=== PATIENT | male | born 1945 | race Caucasian/White ===

== ENCOUNTER → 2018-01-13 | Outpatient (CLI) | payer MEDICARE ==
[~2018-01-13] MED LIST: ASPI1TAB57 PO; ATOR20TA15 PO; CENTCHW4 CHEW; DICY10CA12 PO; FISH100020 PO; HYDR-3516 PO; LACTTAB5 PO; LISI20TA PO; MELO15TA20 PO; RABE1TAB PO; TRAM50TA PO
== END ==
LOC: CPRE 11:25
PROVIDERS: ATTEND Neurological Surgery
DX: M50.10 Cervical disc disorder with radiculopathy, unspecified cervical region (principal); M48.062 Spinal stenosis, lumbar region with neurogenic claudication; M50.30 Other cervical disc degeneration, unspecified cervical region

== ENCOUNTER 2018-06-16 06:07 | Inpatient (IN) ==
[2018-06-16] MEDS ORDERED: Metoprolol Tartrate 25 MG Tablet PO ONE (06:29)
[2018-06-16] MEDS ORDERED: Chlorhexidine Gluconate 2% 1 Pack (2 Cloths) TOPICAL ONE (06:29)
[2018-06-16] MEDS ORDERED: ceFAZolin 2 GM IV; once IV.SIG PRN (06:36)
[2018-06-16] MEDS ORDERED: Bupivacaine/Epinephrine 0.5% Inj 50 ML Vial ONE (06:46)
[2018-06-16] MEDS ORDERED: Gelatin Size 100 Topical Foam ONE (06:47)
[2018-06-16] MEDS: Sod Chloride 0.9% Inj 1,000 ML IV.SIG SCH (06:53)
[2018-06-16] MEDS ORDERED: Sodium Chlor 0.9% Inj 500 ML IV.SIG SCH (07:00)
[2018-06-16] MEDS ORDERED: Propofol Inj 500 MG/50 ML Vial ONE ×2 (07:41→11:55)
[2018-06-16] MEDS ORDERED: DEXTROSE IV.CONT ONE (08:31)
[2018-06-16] MEDS ORDERED: Lidocaine PF 1% Inj 5 ML Syringe OTHER ONE (08:31)
[2018-06-16] MEDS ORDERED: Phenylephrine/NS 1000 MCG/10ML Syringe IV.PUSH ONE (08:31)
[2018-06-16] MEDS ORDERED: Neostigmine Inj 5 MG/5 ML Syringe IV.PUSH ONE (08:31)
[2018-06-16] MEDS ORDERED: [UNRECOGNIZED DRUG - OTHER] IV.CONT ONE (08:31)
[2018-06-16] MEDS ORDERED: Glycopyrrolate Inj 1 MG/5 ML Syringe IV.PUSH ONE (08:31)
[2018-06-16] MEDS ORDERED: fentaNYL Citrate Inj 100 MCG/2 ML Ampul ONE ×2 (11:55→13:06)
[2018-06-16] MEDS ORDERED: Aluminum/Magnesium/Simethacone Susp 30 ML UDC PO PRN (12:55)
[2018-06-16] MEDS ORDERED: Acetaminophen 325 MG Tablet PO PRN (12:55)
[2018-06-16] MEDS ORDERED: Magnesium Sulfate Inj 2 GM in Sodium Chlor 0.9% Inj 96 ML IV.SIG PRN (12:55)
[2018-06-16] MEDS ORDERED: Menthol 5.8 MG Lozenge BUCCAL PRN (12:55)
[2018-06-16] MEDS ORDERED: Potassium Chlor 20 mEq Premix 20 MEQ/100 ML PIGGYBACK IV.SIG PRN (12:55)
[2018-06-16] MEDS ORDERED: Bisacodyl 10 MG Supp RECTAL PRN (12:55)
[2018-06-16] MEDS ORDERED: Calcium Gluconate Inj 1 GM in Sodium Chlor 0.9% Inj 100 ML IV.SIG PRN (12:55)
[2018-06-16] MEDS ORDERED: *morphine SULFATE 4 MG/ML PERIprocedure ONLY ONE ×3 (12:57→13:15)
--- NOTE | 2018-06-16 13:08 | P.OP ---
- Preoperative Diagnosis (1) Cervical spondylosis with myelopathy and radiculopathy (2) Degenerative cervical spinal stenosis (3) Spondylolisthesis, cervical region (4) Other secondary kyphosis, cervical region Date of procedure: 06/16/18 Procedure: Posterior C3, C4, C5, C6, C7 and T1 fusion; C3, C4, C5, C6, C7 and T1 decompressive laminectomies; C3-T1 posterior segmental fixation; microsurgical technique Anesthesia: GETA Surgeon: Saran Newsome MD Member Certification Manager: Candy Loaiza Estimated blood loss (mL): 150 Operation and Findings: Following administration of general endotracheal anesthesia with the neck maintained in neutral position in a [place] collar, patient had a Bateman catheter placed with sequential compression devices. A gram of Ancef was administered intravenously. He was then turned on a prone position on a Andrew table and the head secured in a horseshoe headrest and all pressure points adequately padded. Posterior cervical region was then shaved and prepped with Betadine solution and ChloraPrep. Sterile draping undertaken along with Ioban and a midline incision extending from the C3 to the T1 was then made after infiltrating the skin was 0.5% Marcaine with epinephrine solution. Intraoperative fluoroscopy used for level confirmation. Retractors were used for exposure after the fascia incised and the muscular attachments to the spinous process and lamina along with the facets detached from C3 to T1 levels bilaterally. Further dissection was undertaken using microtechnique with microscope magnification. I drilled out the lamina at the junction of the facets from C3 to C7 levels bilaterally and an en bloc laminectomy undertaken for decompression the spinal canal. The inferior portion of the C3 lamina and the superior portion of the T1 lamina along the spinous process and the ligamentum flavum were also resected with Kerrisons. The facets on both sides decorticated with a curette. Subsequently lateral mass fixation undertaken with the [employer] screws with entry point of the midportion of the facet bilaterally from the C3-T1 levels. The screw trajectory was lateral and superiorly guided at the lateral masses in the cervical spine and at the T1 levels there were injected laterally towards the transverse processes with fluoroscopy also. Screws were then connected with a malik and locked in place with caps. The construct appeared to be secure at this point in AP and lateral fluoroscopy confirmed good placement and alignment. The decorticated facets were then packed from C3 to T1 levels with the local autograft morselized bone for posterolateral fusion. The area was then copiously irrigated with antibody solution laminectomy edges and hemostasis achieved with bone wax along with Gelfoam and thrombin. Retractors removed and the muscle and fascia using 2-0 Vicryl interrupted sutures and 3-0 Vicryl subcuticular stitch also placed in an interrupted fashion and final skin closure was with fransisco. A sterile dressing was applied and the neck immobilized in a [place] collar. He was then turned in supine position and extubated and taken to recovery room. There were no intraoperative complications and all sponge and needle count was correct at the end the procedure. Estimated blood loss about 150 cc. Patient did undergo intraoperative neurologic monitoring which remained stable throughout surgery.
[2018-06-16] MEDS ORDERED: HYDROmorphone PF Inj 2 MG/ML Vial ONE ×4 (13:24→14:52)
[2018-06-16 13:43] LABS: Baso % (Auto) 0.2 % (0.0-2.0); Eos % (Auto) 0.4 % (0.0-4.0); Hemoglobin 10.6 gm/dL (13.0-17.0); Lymph # (Auto) 0.7 th/mm3 (1.0-4.8); Lymph % (Auto) 7.2 % (9.0-44.0); Mean Corpuscular HGB Conc 35.3 % (32.0-36.0); Mean Corpuscular Hemoglobin 34.5 pg (27.0-34.0); Mean Corpuscular Volume 97.7 fL (80.0-100.0); Mean Platelet Volume 8.6 fL (7.0-11.0); Mono # (Auto) 0.2 th/mm3 (0.0-0.9); Mono % (Auto) 1.7 % (0.0-8.0); Neut # (Auto) 8.3 th/mm3 (1.8-7.7); Neut % (Auto) 90.5 % (16.0-70.0); Platelet Count 160 th/mm3 (150-450); Red Blood Count 3.07 mil/mm3 (4.50-5.90); Red Cell Distribution Width 13.3 % (11.6-17.2); White Blood Count 9.2 th/mm3 (4.0-11.0)
--- NOTE | 2018-06-16 13:54 | XR ---
EXAM DATE: 06/16/2018 12:00 AM EDT AGE/SEX: 73 years / Male INDICATIONS: Post-op C3-C4, C4-C5, C5-C6, C6-C7, C7-T1 posterior cervical fusion. CLINICAL DATA: This is the patient's initial encounter. Patient reports that signs and symptoms have been present for 1 day and indicates a pain score of Nonresponsive. MEDICAL/SURGICAL HISTORY: Non-responsive. Non-responsive. COMPARISON: No prior exams available for comparison. CONCLUSION: Fluoroscopic images during posterior fusion C3 inferiorly what appears to be T1 level Electronically signed by: Dannie Arenas MD 06/16/2018 1:53 PM EDT
[2018-06-16 14:05] LABS: Calcium 8.6 mg/dL (8.5-10.1); Carbon Dioxide 19.5 meq/L (21.0-32.0); Magnesium 1.5 mg/dL (1.5-2.5); Potassium 4.2 meq/L (3.5-5.1)
[2018-06-16] MEDS: Dicyclomine 10 MG Capsule PO SCH ×2 (18:23→21:32)
[2018-06-16] MEDS: Morphine Inj 4 MG/ML Vial IV.PUSH PRN ×2 (18:23→23:13)
[2018-06-16] MEDS: Senna/Docusate Sodium 8.6/50 MG Tablet PO SCH (21:35)
[2018-06-16] MEDS: Zolpidem Tartrate 5 MG Tablet PO PRN (23:13)
[2018-06-17] MEDS: Morphine Inj 4 MG/ML Vial IV.PUSH PRN ×6 (02:33→20:07)
[2018-06-17] MEDS: Lisinopril 20 MG Tablet PO SCH (08:11)
[2018-06-17] MEDS: Senna/Docusate Sodium 8.6/50 MG Tablet PO SCH ×2 (08:11→20:07)
[2018-06-17] MEDS: Dicyclomine 10 MG Capsule PO SCH ×3 (09:15→18:09)
[2018-06-17] MEDS: Sod Chloride 0.9% Inj 1,000 ML IV.SIG SCH (09:26)
--- NOTE | 2018-06-17 15:26 | P.PNNS ---
Subjective Interval history: Pt complains of neck pain but states it is improving this morning. He denies any radiculopathy and states it radiates into the shoulders. He states movement exacerbates his pain. He is oob sitting up in chair. <Dannie Talamantes - Last Filed: 06/17/18 15:18> Physical Exam Vital signs: Vital Signs 06/16/18 16:00 06/16/18 20:00 06/17/18 00:00 Temperature 97.8 F 97.6 F 98.9 F Pulse Rate 84 98 H 96 H Respiratory Rate 14 20 20 Blood Pressure 133/77 151/62 H 122/65 Pulse Oximetry 94 L 97 94 L 06/17/18 04:00 06/17/18 08:00 06/17/18 12:00 Temperature 98.1 F 97.6 F 98.3 F Pulse Rate 90 91 H 108 H Respiratory Rate 20 23 22 Blood Pressure 120/60 124/59 L 127/72 Pulse Oximetry 99 98 99 Intake & Output 06/16/18 06/17/18 06/17/18 18:59 06:59 18:59 Intake Total 2745 / 2745 1915 / 1915 1100 / 1100 Output Total 825 / 825 2200 / 2200 100 / 100 Balance 1920 / 1920 -285 / -285 1000 / 1000 Weight 69.8 kg Intake: IV 395 / 395 955 / 955 1100 / 1100 NS + KCl 20 mEq Inj 1,000 ML @ 145 / 145 855 / 855 1000 / 1000 100 mls/hr IV.CONT .Q10H [facility] Rx #:[id number] Magnesium Sulfate Inj 2 GM In 100 / 100 NS Inj 96 ML @ 100 mls/hr IV. SIG UNSCH PRN Rx#:[id number] Ancef 2 GM Premix Inj 2 gm In 50 / 50 50 ml @ 100 mls/hr IV.SIG SPEECH AND LANGUAGE SPECIALIST PRN Rx#:[id number] Ancef Inj 1,000 MG In NS Inj 100 / 100 100 / 100 100 / 100 100 ML @ 200 mls/hr IV.SIG Q8H [place] Rx#:[id number] Oral 50 / 50 960 / 960 Anesthesia Amount 2300 / 2300 Output: Urine 2200 / 2200 100 / 100 Estimated Blood Loss 150 / 150 Urine Amount (Catheter) 675 / 675 Indwelling Urethral Catheter 675 / 675 - Constitutional mild distress (Related to pain.), average body habitus, cooperative - Routine HEENT Exam Head: Present: normocephalic, atraumatic Eye: Present: PERRL. Absent: conjunctival icterus ENT: Absent: oropharynx clear - Routine Neck Exam Absent: full ROM (Pt in a [place] J cervical collar.) - Routine Respiratory Exam Present: CTA bilaterally. Absent: respiratory distress, rhonchi, wheezes - Routine Cardiovascular Exam Present: RRR, S1, S2. Absent: murmur - Routine Abdominal Exam Present: soft, normoactive bowel sounds. Absent: distended - Routine Skin Exam Absent: cyanosis, erythema Comments: Incision clean and dry. Kati in place. No signs of infection or complication. - Routine Neurological Exam Present: alert, motor deficit (Pt has mild give away deltoid weakness but has a history of shoulder problems with the left had been replaced and the right needing replacement.), moving all extremities. Absent: altered mental status - Routine Psychiatric Exam Present: normal affect, cooperative. Absent: anxious - Urinary Catheter Management Indwelling Urethral Catheter Cath placed during this visit: yes, but has since been removed by the nurse Reason for continuing: Continue criteria not met Insertion date: 06/16/18 Removal date: 06/17/18 Removal time: 05:45 <Dannie Talamantes - Last Filed: 06/17/18 15:18> Vital signs: Vital Signs 06/16/18 20:00 06/17/18 00:00 06/17/18 04:00 Temperature 97.6 F 98.9 F 98.1 F Pulse Rate 98 H 96 H 90 Respiratory Rate 20 20 20 Blood Pressure 151/62 H 122/65 120/60 Pulse Oximetry 97 94 L 99 06/17/18 08:00 06/17/18 12:00 06/17/18 16:00 Temperature 97.6 F 98.3 F 99.3 F Pulse Rate 91 H 108 H 92 H Respiratory Rate 23 22 23 Blood Pressure 124/59 L 127/72 136/72 Pulse Oximetry 98 99 98 Intake & Output 06/16/18 06/17/18 06/17/18 18:59 06:59 18:59 Intake Total 2745 / 2745 1915 / 1915 1100 / 1100 Output Total 825 / 825 2200 / 2200 100 / 100 Balance 1920 / 1920 -285 / -285 1000 / 1000 Weight 69.8 kg Intake: IV 395 / 395 955 / 955 1100 / 1100 NS + KCl 20 mEq Inj 1,000 ML @ 145 / 145 855 / 855 1000 / 1000 100 mls/hr IV.CONT .Q10H [facility] Rx #:[id number] Magnesium Sulfate Inj 2 GM In 100 / 100 NS Inj 96 ML @ 100 mls/hr IV. SIG UNSCH PRN Rx#:[id number] Ancef 2 GM Premix Inj 2 gm In 50 / 50 50 ml @ 100 mls/hr IV.SIG SPEECH AND LANGUAGE SPECIALIST PRN Rx#:[id number] Ancef Inj 1,000 MG In NS Inj 100 / 100 100 / 100 100 / 100 100 ML @ 200 mls/hr IV.SIG Q8H [facility] Rx#:[id number] Oral 50 / 50 960 / 960 Anesthesia Amount 2300 / 2300 Output: Urine 2200 / 2200 100 / 100 Estimated Blood Loss 150 / 150 Urine Amount (Catheter) 675 / 675 Indwelling Urethral Catheter 675 / 675 - Urinary Catheter Management Indwelling Urethral Catheter Cath placed during this visit: no <Saran Newsome - Last Filed: 06/17/18 16:36> Assessment and Plan - Assessment (1) Cervical spondylosis with myelopathy and radiculopathy Code(s): M47.12 - Other spondylosis with myelopathy, cervical region; M47.22 - Other spondylosis with radiculopathy, cervical region Status: Acute (2) Degenerative cervical spinal stenosis Code(s): M48.02 - Spinal stenosis, cervical region Status: Acute (3) Spondylolisthesis, cervical region Code(s): M43.12 - Spondylolisthesis, cervical region Status: Acute (4) Other secondary kyphosis, cervical region Code(s): M40.12 - Other secondary kyphosis, cervical region Status: Acute - Plan A: 73 y/o M s/p Posterior C3, C4, C5, C6, C7 and T1 fusion; C3, C4, C5, C6, C7 and T1 decompressive laminectomies; C3-T1 posterior segmental fixation; microsurgical technique by Dr. Newsome on 06/16/18. P: Continue with pain control. Pt got oral pain medication and had injection of morphine this morning. Continue with cervical collar. PT Consult increase ambulation. <Dannie Talamantes - Last Filed: 06/17/18 15:18> - Attending Attestation The exam, history, and the medical decision-making described in the above note were completed with the assistance of the mid-level provider. I reviewed and agree with the findings presented. I attest that I had a [id number] encounter with the patient on the same day, and personally performed and documented my assessment and findings in the medical record. <Saran Newsome - Last Filed: 06/17/18 16:36>
[2018-06-17] MEDS: Zolpidem Tartrate 5 MG Tablet PO PRN (23:30)
[2018-06-18] MEDS: Morphine Inj 4 MG/ML Vial IV.PUSH PRN ×2 (04:14→11:47)
[2018-06-18] MEDS: Dicyclomine 10 MG Capsule PO SCH ×3 (09:01→17:45)
[2018-06-18] MEDS: Lisinopril 20 MG Tablet PO SCH (09:01)
[2018-06-18] MEDS: Senna/Docusate Sodium 8.6/50 MG Tablet PO SCH ×2 (09:01→21:07)
--- NOTE | 2018-06-18 13:37 | P.PNNS ---
Subjective Interval history: Pt awake and alert. Complains of neck pain. No radiculopathy in UEs. He states when the catheter was removed he had urgency and frequency but was unable to void. The catheter was replaced. He denies any history of previous BPH. <Dannie Talamantes - Last Filed: 06/18/18 13:18> Physical Exam Vital signs: Vital Signs 06/17/18 16:00 06/17/18 20:00 06/18/18 00:00 Temperature 99.3 F 99.9 F H 99.3 F Pulse Rate 92 H 102 H 93 H Respiratory Rate 23 22 20 Blood Pressure 136/72 140/73 123/66 Pulse Oximetry 98 95 95 06/18/18 04:00 06/18/18 08:00 06/18/18 12:00 Temperature 99.7 F H 100.6 F H 99.5 F Pulse Rate 83 94 H 95 H Respiratory Rate 20 20 18 Blood Pressure 111/67 139/75 123/73 Pulse Oximetry 94 L 97 95 Intake & Output 06/17/18 06/18/18 06/18/18 18:59 06:59 18:59 Intake Total 1100 / 1100 Output Total 100 / 100 2950 / 2950 Balance 1000 / 1000 -2950 / -2950 Weight 73.9 kg Intake: IV 1100 / 1100 NS + KCl 20 mEq Inj 1,000 ML @ 1000 / 1000 100 mls/hr IV.CONT .Q10H [facility] Rx #:[id number] Ancef Inj 1,000 MG In NS Inj 100 / 100 100 ML @ 200 mls/hr IV.SIG Q8H [facility] Rx#:[id number] Output: Urine 100 / 100 900 / 900 Urine Amount (Catheter) 2049 Indwelling Urethral Catheter 2049 - Constitutional no acute distress - Routine HEENT Exam Head: Present: normocephalic, atraumatic Eye: Present: PERRL. Absent: conjunctival icterus - Routine Neck Exam Absent: full ROM ([place] J collar in place.) - Routine Respiratory Exam Present: CTA bilaterally. Absent: respiratory distress, rhonchi, wheezes - Routine Cardiovascular Exam Present: RRR, S1, S2. Absent: murmur - Routine Abdominal Exam Present: soft, normoactive bowel sounds. Absent: tenderness, distended - Routine Skin Exam Absent: cyanosis, erythema - Routine Neurological Exam Present: alert, oriented X3, moving all extremities, normal speech. Absent: sensory deficit, motor deficit - Routine Psychiatric Exam Present: normal affect, cooperative. Absent: anxious, agitated - Urinary Catheter Management Indwelling Urethral Catheter Cath placed during this visit: yes, but has since been removed by the nurse Reason for continuing: Acute urinary retention Insertion date: 06/17/18 Insertion time: 20:44 Removal date: 06/17/18 Removal time: 05:45 <Dannie Talamantes - Last Filed: 06/18/18 13:18> Vital signs: Vital Signs 06/17/18 20:00 06/18/18 00:00 06/18/18 04:00 Temperature 99.9 F H 99.3 F 99.7 F H Pulse Rate 102 H 93 H 83 Respiratory Rate 22 20 20 Blood Pressure 140/73 123/66 111/67 Pulse Oximetry 95 95 94 L 06/18/18 08:00 06/18/18 12:00 Temperature 100.6 F H 99.5 F Pulse Rate 94 H 95 H Respiratory Rate 20 18 Blood Pressure 139/75 123/73 Pulse Oximetry 97 95 Intake & Output 06/17/18 06/18/18 06/18/18 18:59 06:59 18:59 Intake Total 1100 / 1100 Output Total 100 / 100 2950 / 2950 Balance 1000 / 1000 -2950 / -2950 Weight 73.9 kg Intake: IV 1100 / 1100 NS + KCl 20 mEq Inj 1,000 ML @ 1000 / 1000 100 mls/hr IV.CONT .Q10H [facility] Rx #:[id number] Ancef Inj 1,000 MG In NS Inj 100 / 100 100 ML @ 200 mls/hr IV.SIG Q8H [facility] Rx#:[id number] Output: Urine 100 / 100 900 / 900 Urine Amount (Catheter) 2049 Indwelling Urethral Catheter 2049 - Urinary Catheter Management Indwelling Urethral Catheter Cath placed during this visit: no <Saran Newsome - Last Filed: 06/18/18 16:56> Assessment and Plan - Assessment (1) Cervical spondylosis with myelopathy and radiculopathy Code(s): M47.12 - Other spondylosis with myelopathy, cervical region; M47.22 - Other spondylosis with radiculopathy, cervical region Status: Acute (2) Degenerative cervical spinal stenosis Code(s): M48.02 - Spinal stenosis, cervical region Status: Acute (3) Spondylolisthesis, cervical region Code(s): M43.12 - Spondylolisthesis, cervical region Status: Acute (4) Other secondary kyphosis, cervical region Code(s): M40.12 - Other secondary kyphosis, cervical region Status: Acute - Plan A: 73 y/o M s/p Posterior C3, C4, C5, C6, C7 and T1 fusion; C3, C4, C5, C6, C7 and T1 decompressive laminectomies; C3-T1 posterior segmental fixation; microsurgical technique by Dr. Newsome on 06/16/18. P: Continue with pain control. Pt got oral pain medication and had injection of morphine this morning, we discussed trying to stop the Morphine. Continue with cervical collar. Continue with PT Possibly discharge tomorrow am. <Dannie Talamantes - Last Filed: 06/18/18 13:18> - Attending Attestation The exam, history, and the medical decision-making described in the above note were completed with the assistance of the mid-level provider. I reviewed and agree with the findings presented. I attest that I had a [id number] encounter with the patient on the same day, and personally performed and documented my assessment and findings in the medical record. Incisional pain well controlled and ambulating. Bateman catheter placed for urinary retention and will leave it until tomorrow morning. If subsequently is able to void in the a.m. then anticipate discharge tomorrow with home health care. <Saran Newsome - Last Filed: 06/18/18 16:56>
--- NOTE | 2018-06-18 14:57 | P.DCO ---
- Diagnosis (1) Cervical spondylosis with myelopathy and radiculopathy Status: Acute (2) Degenerative cervical spinal stenosis Status: Acute (3) Spondylolisthesis, cervical region Status: Acute (4) Other secondary kyphosis, cervical region Status: Acute - Physical Therapy Order: Evaluate and treat, Improve ambulation, Strength and gait training - Home Health Nursing Order: Wound care and dressing changes, Nursing assessment with vital signs - Certification I have seen patient Aroldo Quiñonez on 06/18/18. My clinical findings support the need for the requested home health care services because: Deconditioned with increased weakness, High risk of falls I certify that my clinical findings support that this patient is homebound because: Post-op weakness, Unsteady gait/balance, Unable to use public transportation
[2018-06-18 18:26] LABS: Bacteria,Urine Rare /hpf; Bilirubin,Urine Negative (Negative); Clarity,Urine Clear (Clear); Color,Urine Straw (Yellw/Straw); Glucose,Urine (UA) Negative (Negative); Hyaline Casts,Urine 1 /lpf (0-3); Leukocyte Esterase,Urine Moderate (Negative); Mucus,Urine Few /lpf (Occasional); Nitrite,Urine Negative (Negative); Specific Gravity,Urine 1.009 (1.002-1.035)
[2018-06-19] MEDS: Zolpidem Tartrate 5 MG Tablet PO PRN (01:46)
[2018-06-19] MEDS: Senna/Docusate Sodium 8.6/50 MG Tablet PO SCH (08:12)
[2018-06-19] MEDS: Lisinopril 20 MG Tablet PO SCH (08:13)
[2018-06-19] MEDS: Dicyclomine 10 MG Capsule PO SCH ×2 (08:13→12:50)
--- NOTE | 2018-06-19 10:41 | P.PNNS ---
Subjective Interval history: patient reports pain controlled. ramirez dc'ed this am. +voiding Physical Exam Vital signs: Vital Signs 06/18/18 12:00 06/18/18 16:00 06/18/18 20:00 Temperature 99.5 F 99 F 99.4 F Pulse Rate 95 H 97 H 100 H Respiratory Rate 18 20 18 Blood Pressure 123/73 104/66 122/57 L Pulse Oximetry 95 100 95 06/19/18 00:00 06/19/18 04:00 06/19/18 08:00 Temperature 98.9 F 98.9 F 99.1 F Pulse Rate 80 90 91 H Respiratory Rate 18 18 18 Blood Pressure 125/64 105/64 113/68 Pulse Oximetry 98 96 96 Intake & Output 06/18/18 06/19/18 06/19/18 18:59 06:59 18:59 Output Total 1999 Balance -1999 Weight 71.1 kg Output: Urine 1999 Narrative: E4 Aox3 FCCx4 - Urinary Catheter Management Indwelling Urethral Catheter Cath placed during this visit: yes, but has since been removed by the nurse Reason for continuing: Decision to DC catheter Insertion date: 06/17/18 Insertion time: 20:44 Removal date: 06/19/18 Removal time: 06:15 Assessment and Plan - Plan A: 73 y/o M s/p C3-T1 PCF by Dr. Newsome on 06/16/18. Continue with cervical collar. Continue with PT patient voiding, will dc today
== END 2018-06-19 12:58 | disposition home health service (06) ==
LOC: HSDC 06:07 → EDSTATUS 08:30 → N05 15:31 → HSDI 17:34 → N05 17:40
PROVIDERS: ADMIT Neurological Surgery; ATTEND Neurological Surgery